=== PATIENT | female | born 1950 | race Caucasian/White ===

== ENCOUNTER 2017-07-24 09:59 | Outpatient (CLI) | payer MEDICARE, OTHER ==
[2017-07-24 11:36] LABS: #Basophils 0.1 thou/uL (0.0-0.2); #Eosinphils 0.2 thou/uL (0.0-0.7); #Lymphocytes 1.7 thou/uL (1.20-3.40); #Monocytes 0.6 thou/uL (0.11-0.59); #Neutrophils 4.4 thou/uL (1.40-6.50); %Eosinophils 3.1 % (0.0-10.0); %Lymphocytes 24.2 % (21.0-51.0); %Monocytes 8.6 % (0.0-10.0); %Neutrophils 63.2 % (42.0-75.0); Hemoglobin 13.7 g/dL (12.0-16.0); Mean Corpuscular HGB CONC 32.6 g/dL (32.0-36.0); Mean Corpuscular Hemoglobin 29.9 pg (27.0-31.0); Mean Corpuscular Volume 91.9 fl (81.0-99.0); Platelet Count 324 thou/uL (130-400); Red Blood Cell (RBC) Count 4.57 mill/uL (4.20-5.40); White Blood Cell (WBC) Count 6.9 thou/uL (4.8-10.8)
[2017-07-24 11:53] LABS: ALT (SGPT) 15 U/L (8-55); AST (SGOT) 14 U/L (5-34); Albumin 4.3 g/dL (3.4-4.8); Alkaline Phosphatase 103 U/L (40-150); Anion Gap 13 mmol/L (10-20); BUN (Urea Nitrogen) 18 mg/dL (9.8-20.1); Bilirubin, Total 0.5 mg/dL (0.2-1.2); Calc. Creatinine Clearance 0 mL/min (70-130); Calcium 9.1 mg/dL (7.8-10.44); Carbon Dioxide 24 mmol/L (23-31); Cardiac Risk 3.8 (Less than 4.5); Chloride 107 mmol/L (98-107); Cholesterol 185 mg/dl (< 200 Desired); Estimated GFR-MDRD 59; Globulin 2.8 g/dL (2.4-3.5); Glucose 90 mg/dL (80-115); HDL Cholesterol 49 mg/dL (>60 Neg Risk); LDL Cholesterol, Calculated 120 mg/dL; Potassium 4.1 mmol/L (3.5-5.1); Protein, Total 7.1 g/dL (6.0-8.3); Sodium 140 mmol/L (136-145); Triglycerides 78 mg/dL (Less than 150)
== END 2017-07-24 10:00 | disposition home or self-care (01) ==
LOC: HPCALD 09:59
PROVIDERS: ATTEND Family Medicine
DX: Z13.6 Encounter for screening for cardiovascular disorders (principal); Z00.00 Encounter for general adult medical examination without abnormal findings; E55.9 Vitamin D deficiency, unspecified
CPT/HCPCS: 36415; 80053; 80061; 82306; 85025

== ENCOUNTER 2021-01-07 11:25 | Outpatient (CLI) | payer MEDICARE | END 2021-01-07 11:26 | disposition home or self-care (01) | LOC: BURRAD 11:25 | PROVIDERS: ATTEND Physician Assistant | DX: M41.9 Scoliosis, unspecified (principal); M43.8X6 Other specified deforming dorsopathies, lumbar region | CPT/HCPCS: 72081 ==

== ENCOUNTER 2022-11-30 16:45 | Outpatient (CLI) | payer MEDICARE | END 2022-11-30 16:46 | disposition home or self-care (01) | LOC: BURRAD 16:45 | PROVIDERS: ATTEND Physician Assistant | DX: M25.512 Pain in left shoulder (principal) ==

== ENCOUNTER 2023-04-19 13:46 | Outpatient (CLI) | payer MEDICARE | END 2023-04-19 13:47 | disposition home or self-care (01) | LOC: BURRAD 13:46 | PROVIDERS: ATTEND Physician Assistant | DX: R42 Dizziness and giddiness (principal) | CPT/HCPCS: 93005; 93010 ==

== ENCOUNTER 2023-09-26 15:42 | Outpatient (CLI) | payer MEDICARE | END 2023-09-26 15:43 | disposition home or self-care (01) | LOC: BURRAD 15:42 | PROVIDERS: ATTEND Physician Assistant | DX: M25.511 Pain in right shoulder (principal) ==